=== PATIENT | female | born 1970 | race Caucasian/White ===

== ENCOUNTER 2017-08-13 14:31 | Outpatient (CLI) | payer BC | END 2017-08-13 14:32 | disposition home or self-care (01) | LOC: BICMAMMO 14:31 | PROVIDERS: ATTEND Physical Medicine & Rehabilitation | DX: Z12.31 Encounter for screening mammogram for malignant neoplasm of breast (principal) | CPT/HCPCS: 77063; 77067 ==

== ENCOUNTER 2017-08-23 14:23 | Outpatient (CLI) | payer BC | END 2017-08-23 14:24 | disposition home or self-care (01) | LOC: BICMAMMO 14:23 | PROVIDERS: ATTEND Nurse Practitioner Family | DX: R92.2 Inconclusive mammogram (principal) | CPT/HCPCS: G0279 ==

== ENCOUNTER 2018-02-21 17:12 | Emergency (ER) | payer BC ==
[2018-02-21 17:39] LABS: #Eosinphils 0.2 thou/uL (0.0-0.7); #Lymphocytes 1.1 thou/uL (1.20-3.40); #Neutrophils 8.6 thou/uL (1.40-6.50); %Basophils 0.1 % (0.0-1.0); %Eosinophils 1.6 % (0.0-10.0); %Lymphocytes 9.9 % (21.0-51.0); %Monocytes 8.9 % (0.0-10.0); %Neutrophils 79.5 % (42.0-75.0); Hemoglobin 13.2 g/dL (12.0-16.0); Mean Corpuscular HGB CONC 33.1 g/dL (32.0-36.0); Mean Corpuscular Hemoglobin 28.9 pg (27.0-31.0); Mean Corpuscular Volume 87.3 fL (78.0-98.0); Mean Platelet Volume 7.7 fL (7.4-10.4); Platelet Count 174 thou/uL (130-400); RBC Distribution Width 13.5 % (11.5-14.5); Red Blood Cell (RBC) Count 4.56 mill/uL (4.20-5.40); White Blood Cell (WBC) Count 10.8 thou/uL (4.8-10.8)
[2018-02-21 18:08] LABS: ALT (SGPT) 20 U/L (8-55); AST (SGOT) 17 U/L (5-34); Albumin 3.8 g/dL (3.5-5.0); Alkaline Phosphatase 87 U/L (40-150); Anion Gap 17 mmol/L (10-20); BUN (Urea Nitrogen) 44 mg/dL (7.0-18.7); Bilirubin, Total 0.6 mg/dL (0.2-1.2); Calc. Creatinine Clearance 0 mL/min (70-130); Calcium 9.3 mg/dL (7.8-10.44); Carbon Dioxide 21 mmol/L (22-29); Chloride 97 mmol/L (98-107); Estimated GFR-MDRD 24; Globulin 3.4 g/dL (2.4-3.5); Glucose 268 mg/dL (70-105); Potassium 4.5 mmol/L (3.5-5.1); Protein, Total 7.2 g/dL (6.0-8.3); Sodium 130 mmol/L (136-145)
[2018-02-21] MEDS ORDERED: Ketorolac Tromethamine 30 MG/ML VIAL ONE (18:51)
[2018-02-21] MEDS ORDERED: Ondansetron PF 4 MG/2 ML Vial ONE (18:51)
[2018-02-21] MEDS ORDERED: Ondansetron PF 4 MG/2 ML Vial SLOW IVP ONE (19:00)
[2018-02-21] MEDS ORDERED: Sodium Chloride 0.9% 1,000 ML IV SCH (19:00)
[2018-02-21] MEDS ORDERED: Ketorolac Tromethamine 30 MG/ML VIAL IVP SCH (19:00)
[2018-02-21 19:05] LABS: Bacteria/HPF Rare-Few HPF (None Seen); Bilirubin Negative (Negative); Blood, Urine Large (Negative); Clarity CLEAR (Clear); Glucose, Urine (Dipstick) >=1000 mg/dL (Negative); Hyaline Casts/LPF 4-6 HYALINE CAST LPF (0-3 Hyaline); Leukocyte Negative (Negative); Nitrite Negative (Negative); Pathc Cast-AUWi Flag 1.59 (0-2.49); Protein, Urine (Dipstick) Trace mg/dL (Neg-Trace); RBC/HPF 21-50 HPF (0-3); Specific Gravity, Urine 1.016 (1.002-1.036); Squamous Epithelial 0-3 HPF (0-3); pH, Urine 5.5 (5.0-9.0)
[2018-02-21 19:41] LABS: Pregnancy Test - Urine (BHCG) Negative (Negative); Pregu Control Background? CLEAR/WHITE (CLR/WHITE); Pregu Control Bar Appear? YES (CONTROL BAR); Specific Gravity 1.016 (1.002-1.036)
--- NOTE | 2018-02-21 22:06 | CT ---
CT OF THE ABDOMEN AND PELVIS WITHOUT CONTRAST: 02/21/18 PROVIDED CLINICAL HISTORY: Left flank pain. FINDINGS: The visualized lung bases are free of significant opacity. There is a 5-6 mm left ureteral calculus p resent at the level of L5 inferior end plate. There is mild left hydronephrosis and left hydroureter. Additional intrarenal calculi are present bilaterally measuring 1 to 2 mm. No bladder calculus is ev ident. The solid abdominal organs are suboptimally evaluated due to the absence of IV contrast material but demonstrates an otherwise unremarkable unenhanced CT appearance. There is no bowel dilatation. The perinephric fat stranding on the left. No free fluid or free air. T he appendix appears normal. Vascular calcifications. Osseous structures demonstrate no concerning lytic or blastic lesions. IMPRESSION: 1. 5-6 mm obstructing left ureteral calculus. 2. Bilateral nephrolithiasis. POS: [facility]
== END 2018-02-21 22:00 | disposition home or self-care (01) ==
LOC: ERS 17:12
DX: N13.2 Hydronephrosis with renal and ureteral calculous obstruction (principal); E11.9 Type 2 diabetes mellitus without complications; E78.5 Hyperlipidemia, unspecified; I10 Essential (primary) hypertension; F32.9 Major depressive disorder, single episode, unspecified; Z79.4 Long term (current) use of insulin; Z79.899 Other long term (current) drug therapy
CPT/HCPCS: 36415; 74176; 80053; 81003; 81015; 81025; 85025; 96361; 96374; 96375; J1885; J2405

== ENCOUNTER 2020-08-27 12:52 | Outpatient (CLI) | payer BC | END 2020-08-27 12:53 | disposition home or self-care (01) | LOC: BICMAMMO 12:52 | PROVIDERS: ATTEND Physician Assistant Medical | DX: Z12.31 Encounter for screening mammogram for malignant neoplasm of breast (principal) | CPT/HCPCS: 77063; 77067 ==